=== PATIENT | male | born 1970 | race Caucasian/White ===

== ENCOUNTER 2016-11-24 17:37 | Emergency (ER) | payer SELFPAY ==
[~2016-11-24] VITALS: Ht 182.9 cm; Wt 99.8 kg
--- NOTE | 2016-11-24 20:15 | NUR ---
Patient walked in to ER c/o ETOH intoxication. Patient states that he wants to quit drinking, however states that he made several trips accross the street to the bar prior to being directed to ER room. To room 5B. PJ performed MSE.
[2016-11-24] MEDS ORDERED: IV NORMAL SALINE 1000 ML BAG IV ONE (20:30)
[2016-11-24] MEDS ORDERED: LORAZEPAM 2 MG/1 ML VIAL IV ONE ×2 (20:30→21:45)
[2016-11-24] MEDS ORDERED: PANTOPRAZOLE SODIUM 40 MG VIAL IV ONE (20:30)
[2016-11-24] MEDS ORDERED: PANTOPRAZOLE SODIUM 40 MG VIAL ONE (20:48)
[2016-11-24] MEDS ORDERED: LORAZEPAM 2 MG/1 ML VIAL ONE ×2 (20:49→22:07)
[2016-11-24 21:06] LABS: CALCIUM 9.2 mg/dL (8.5-10.1); CREATININE 0.9 mg/dL (0.6-1.3); POTASSIUM 3.6 mmol/L (3.5-5.1)
[2016-11-24 21:20] LABS: ALBUMIN 4.2 g/dL (3.4-5.0); BASOPHILS % (AUTO) 0.6 % (0.0-2.0); BILIRUBIN,DIRECT 0.1 mg/dL (0.0-0.2); BILIRUBIN,TOTAL 0.6 mg/dL (0.2-1.0); EOSINOPHILS % (AUTO) 0.5 % (0.0-7.0); HEMATOCRIT 43.8 % (40.0-50.0); HEMOGLOBIN 16.1 g/dL (14.0-18.0); LYMPHOCYTES # (AUTO) 2.7 K/uL (0.8-4.8); LYMPHOCYTES % (AUTO) 45.2 % (20.5-51.5); MEAN CORPUSCULAR HEMOGLOBIN 33.2 uug (27.0-31.0); MEAN CORPUSCULAR HGB CONC 37 g/dL (32.0-37.0); MEAN CORPUSCULAR VOLUME 89.9 fL (82.0-92.0); MONOCYTES # (AUTO) 0.5 K/uL (0.1-1.30); MONOCYTES % (AUTO) 7.8 % (0.0-11.0); NEUTROPHILS # (AUTO) 2.7 K/uL (1.8-8.9); NEUTROPHILS % (AUTO) 45.9 % (38.5-71.5); PLATELET COUNT (AUTO) 176 K/uL (150-450); RED BLOOD CELL COUNT(AUTO) 4.87 MIL/uL (4.70-6.10); RED CELL DISTRIBUTION WIDTH 12.5 % (11.5-14.5); TOTAL PROTEIN, SERUM 8.1 g/dL (6.4-8.2); WHITE BLOOD COUNT (AUTO) 5.9 K/uL (4.0-11.2)
--- NOTE | 2016-11-24 23:22 | NUR ---
Patient ambulated to Nursing Station with a steady gait and requested to be discharged home at this time. ERMD notified. Patient discharged to home in stable conditon. Written and verbal after care instructions given. Patient verbalizes understanding of instructions.
== END 2016-11-24 23:24 | disposition home or self-care (01) ==
LOC: ER 17:45
DX: F10.129 Alcohol abuse with intoxication, unspecified (principal)
CPT/HCPCS: 36415; 80048; 80076; 83690; 85025; 85730; 96361; 96374; 96375; 96376; 99284; A4663; C9113; G0482; J2060 ×2; J7030 ×2; G6040-TC

== ENCOUNTER 2016-12-14 13:48 | Emergency (ER) | payer SELFPAY ==
[~2016-12-14] VITALS: Ht 182.9 cm; Wt 99.8 kg
[2016-12-14] MEDS ORDERED: LORAZEPAM 2 MG/1 ML VIAL IV ONE ×2 (14:15→15:30)
[2016-12-14] MEDS ORDERED: IV NORMAL SALINE 1000 ML BAG IV ONE (14:15)
[2016-12-14] MEDS ORDERED: ONDANSETRON 4 MG/2 ML VIAL IV ONE (14:15)
[2016-12-14 14:28] LABS: BASOPHILS % (AUTO) 0.6 % (0.0-2.0); EOSINOPHILS % (AUTO) 0.4 % (0.0-7.0); HEMATOCRIT 44.9 % (36.7-47.1); HEMOGLOBIN 15.5 g/dL (12.5-16.3); LYMPHOCYTES # (AUTO) 1.5 K/uL (20.0-40.0); LYMPHOCYTES % (AUTO) 22.1 % (20.5-51.5); MEAN CORPUSCULAR HEMOGLOBIN 31.7 uug (23.8-33.4); MEAN CORPUSCULAR HGB CONC 35 g/dL (32.5-36.3); MEAN CORPUSCULAR VOLUME 91.6 fL (73.0-96.2); MONOCYTES # (AUTO) 0.5 K/uL (2.0-10.0); MONOCYTES % (AUTO) 7.2 % (0.0-11.0); NEUTROPHILS # (AUTO) 4.9 K/uL (1.8-8.9); NEUTROPHILS % (AUTO) 69.7 % (38.5-71.5); PLATELET COUNT (AUTO) 190 K/uL (152-348); RED CELL DISTRIBUTION WIDTH 13.3 % (12.1-16.2); WHITE BLOOD COUNT (AUTO) 6.9 K/uL (3.6-10.2)
[2016-12-14] MEDS ORDERED: ONDANSETRON 4 MG/2 ML VIAL ONE (14:31)
[2016-12-14 14:32] LABS: CALCIUM 8.9 mg/dL (8.5-10.1); CREATININE 0.8 mg/dL (0.6-1.3); POTASSIUM 3.6 mmol/L (3.5-5.1)
[2016-12-14] MEDS ORDERED: LORAZEPAM 2 MG/1 ML VIAL ONE ×2 (14:32→15:35)
[2016-12-14 14:37] LABS: ALBUMIN 4.2 g/dL (3.4-5.0); BILIRUBIN,DIRECT 0.2 mg/dL (0.0-0.2); BILIRUBIN,TOTAL 1.1 mg/dL (0.2-1.0)
--- NOTE | 2016-12-14 15:11 | NUR ---
Pt resting in gurney with no s/s of acute distress noted.
--- NOTE | 2016-12-14 17:16 | NUR ---
IV removed. Catheter intact and site benign. Pressure and 4x4 gauze applied to site. No bleeding noted.Patient discharged to home in stable conditon. Written and verbal after care instructions given. Patient verbalizes understanding of instructions. Stressed follow up.
[2016-12-14 17:18] VITALS: BP 137/89
== END 2016-12-14 17:18 | disposition home or self-care (01) ==
LOC: ER 13:48
DX: F10.129 Alcohol abuse with intoxication, unspecified (principal)
CPT/HCPCS: 36415; 83690; 85025; A4663; G6040-TC; J2060; J2405; J7030

== ENCOUNTER 2018-01-24 04:45 | Emergency (ER) | payer MEDICAID ==
[~2018-01-24] VITALS: Ht 180.3 cm; Wt 99.8 kg
[2018-01-24] MEDS ORDERED: IV NORMAL SALINE 1000 ML BAG IV ONE ×2 (05:00→06:15)
[2018-01-24] MEDS ORDERED: PANTOPRAZOLE SODIUM 40 MG VIAL IV ONE (05:00)
[2018-01-24] MEDS ORDERED: LORAZEPAM 2 MG/1 ML VIAL IV ONE ×2 (05:00→05:45)
[2018-01-24] MEDS ORDERED: PANTOPRAZOLE SODIUM 40 MG VIAL ONE (05:14)
[2018-01-24] MEDS ORDERED: LORAZEPAM 2 MG/1 ML VIAL ONE ×2 (05:15→05:50)
[2018-01-24] MEDS ORDERED: CLONIDINE HCL 0.2 MG TABLET ONE (05:43)
[2018-01-24] MEDS ORDERED: CLONIDINE HCL 0.2 MG TABLET PO ONE (05:45)
[2018-01-24 05:48] LABS: BASOPHILS % (AUTO) 0.6 % (0.0-2.0); EOSINOPHILS % (AUTO) 0.5 % (0.0-7.0); HEMATOCRIT 42.4 % (36.7-47.1); HEMOGLOBIN 15.2 g/dL (12.5-16.3); LYMPHOCYTES # (AUTO) 1.8 K/uL (20.0-40.0); LYMPHOCYTES % (AUTO) 30.8 % (20.5-51.5); MEAN CORPUSCULAR HEMOGLOBIN 32.5 uug (23.8-33.4); MEAN CORPUSCULAR HGB CONC 36 g/dL (32.5-36.3); MEAN CORPUSCULAR VOLUME 90.8 fL (73.0-96.2); MONOCYTES # (AUTO) 0.4 K/uL (2.0-10.0); MONOCYTES % (AUTO) 6.3 % (0.0-11.0); NEUTROPHILS # (AUTO) 3.7 K/uL (1.8-8.9); NEUTROPHILS % (AUTO) 61.8 % (38.5-71.5); PLATELET COUNT (AUTO) 183 K/uL (152-348); RED BLOOD CELL COUNT(AUTO) 4.67 MIL/uL (4.06-5.63)
[2018-01-24 05:53] LABS: BILIRUBIN,DIRECT 0.2 mg/dL (0.0-0.2); BILIRUBIN,TOTAL 0.6 mg/dL (0.2-1.0); CREATININE 0.8 mg/dL (0.6-1.3); POTASSIUM 3.4 mmol/L (3.5-5.1)
[2018-01-24 05:54] LABS: TOTAL PROTEIN, SERUM 7.5 g/dL (6.4-8.2)
--- NOTE | 2018-01-24 05:56 | NUR ---
PT IN BED. PT RESTING QUIETLY WATCHING TV. PT IN A&OX4. PT ABLE TO MAKE NEEDS KNOWN. NO SIGNS/SYMPTOMS OF DISTRESS WITNESSED AT THIS TIME.
--- NOTE | 2018-01-24 06:07 | NUR ---
PT BEGAN TO EXPERIENCE LOWERED O2 SAT PERCENTAGE ON ROOM AIR. PT PLACED ON 2LTS NASAL CANULA.
--- NOTE | 2018-01-24 07:05 | NUR ---
REPORT GIVEN TO DAY SHIFT NURSE [facility].
--- NOTE | 2018-01-24 07:40 | NUR ---
PT D/C'D HOME, ACI/RX X1 GIVEN. IV D/C'D INTACT, PT GOT DRESSED,AMBULATED W/O DIFF/TOOK ALL BELONGINGS.
--- NOTE | 2018-01-24 07:40 | NUR ---
PT WAS NOT ABLE TO PROVIDE URINE.
[2018-01-24 08:01] VITALS: BP 166/96
== END 2018-01-24 07:40 | disposition home or self-care (01) ==
LOC: ER 04:49
DX: F10.129 Alcohol abuse with intoxication, unspecified (principal); E11.9 Type 2 diabetes mellitus without complications
CPT/HCPCS: 36415; 70030-TC; 71045; 83690; 85025; 85730; 93005; A4663; C9113; G0480; J2060; J7030